=== PATIENT | female | born 1945 | race Caucasian/White ===

== ENCOUNTER 2017-04-03 08:08 | Day surgery (SDC) | payer BC ==
--- NOTE | 2017-04-01 00:49 | HP ---
HISTORY AND PHYSICAL: DATE OF ADMISSION: 04/03/17 - [facility] HISTORY OF PRESENT ILLNESS: The patient is a 71-year-old woman scheduled for cataract extraction of the left eye on 04/03/17. PAST MEDICAL HISTORY: Are as follows: 1. Hypothyroidism. 2. Asthma, controlled. 3. Osteoporosis. 4. History of vitamin D deficiency. 5. History of excision of melanoma in situ. 6. Zoon's vulvitis. 7. History of irritable bowel syndrome. 8. History of nonulcerative dyspepsia. 9. Varicose veins. 10. Hypertension. 11. History of urticaria. 12. 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 PAST SURGICAL HISTORY: Include: 1. Right cataract extraction, 2010. 2. Urethral dilatation in childhood. 3. Cone biopsy of the cervix in 1989. 4. Excision of melanoma in situ, 2005. 5. Excision of melanoma in situ, 2008. CURRENT MEDICATIONS: 1. Losartan 50 mg daily. 2. Tirosint 75 mcg alternating with 50 mcg daily. 3. Vitamin D3 2000 units daily. 4. AlgaeCal 1 every day. 5. Estring. 6. Coenzyme Q10 200 mg daily. 7. Zinc 30 mg daily. 8. Cetirizine 10 mg p.r.n. daily. 9. MultiVites 1 daily. 10. Albuterol inhaler as needed. 11. Vitamin B complex every day. 12. Vitamin C 500 mg two a day. 13. Pregnenolone 4 drops daily. 14. DHEA 2 drops daily. ALLERGIES: ALENDRONATE caused GI upset, FLUCONAZOLE caused swelling under the lips, ASPIRIN caused bruising, and SULFONAMIDE. HABITS: Tobacco none, EtOH none, caffeine none. FAMILY HISTORY: Positive for coronary artery disease. SOCIAL AND PERSONAL HISTORY: The patient is . She lives in [place] [facility] , works at the [employer]. 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 Her mother who is over 100 still lives in [place] and she comes here to visit her. REVIEW OF SYSTEMS: She is generally active. She exercises regularly. She travels a lot. Appetite is good. Weight is stable. Skin: Negative. HEENT: Blurring of vision due to cataract. Nodes: Negative. Heme: Negative. Breasts: Negative. Endocrine: See above. She does have some fatigue, which she attributes to her thyroid. Respiratory: Asthma, controlled. Cardiovascular: Negative. GI: See above. Currently, asymptomatic. : Negative. POWERPLANT OPERATOR: Symptoms of vulvitis controlled with present regimen. Musculoskeletal: Negative. Neuro: Negative. PHYSICAL EXAMINATION GENERAL: She is a well-developed, well-nourished female, in no acute distress. VITAL SIGNS: Blood pressure 130/70 in the right arm, 118/68 in the left arm ( taken at different times); pulse 60, respirations 16; temperature 97.6. SKIN: Warm and dry. HEENT: Atraumatic, normocephalic. Full EOMs. TMs are unremarkable. Hearing normal with hearing aids in. Mouth: Pharynx unremarkable. NECK: Supple. She has mild irregular thyromegaly. Nodes are without adenopathy. CHEST: Clear. HEART: Normal S1 and S2. There are no murmurs, gallops, or rubs. Pulses are full throughout without bruits. ABDOMEN: Soft, nontender. No hepatosplenomegaly. No hernias or masses. Bowel sounds are normal. EXTREMITIES: Showed no clubbing, cyanosis, or edema. She has varicose veins in the lower extremities bilaterally. MUSCULOSKELETAL: Shows no joint deformity or swelling. NEUROLOGIC: She is alert, oriented. Cranial nerves are intact. DTRs are absent in the lower extremities. Gait is normal. PSYCHIATRIC: Cognition and affect appear normal. IMPRESSION: The patient with medical problems as noted above. There were no contraindications to surgery as planned. I will be available in the perioperative period should questions or problems arise. [id number]/[facility] #: [id number] MTDD
[~2017-04-03 08:08] MED LIST: Acetaminophen TAB* 325 MG PO PRN; Buffered Lidocaine 0.9% SYRIN* 5 ML/SYR SYRINGE INTRADERM ONE
[2017-04-03] MEDS ORDERED: Buffered Lidocaine 0.9% SYRIN* 5 ML/SYR SYRINGE ONE ×2 (08:54→14:15)
[2017-04-03] MEDS ORDERED: fentaNYL* 50 MCG/ML 2 ML VIAL (100 MCG VIAL) ONE (10:49)
[2017-04-03] MEDS ORDERED: Midazolam* 1 MG/ML 5 ML VIAL (5 MG) ONE (10:55)
[2017-04-03 12:14] VITALS: BP 131/79
[2017-04-03] MEDS ORDERED: Cyclopentolate 1% OPTH.SOL* 2 ML BTL ONE (14:14)
[2017-04-03] MEDS ORDERED: Phenylephrine 2.5% OPTH.SOL* 2 ML BTL ONE (14:14)
[2017-04-03] MEDS ORDERED: Lidocaine 1% MPF* 2 ML VIAL ONE (14:14)
[2017-04-03] MEDS ORDERED: Tropicamide 1% OPTH.SOL* BTL ONE (14:14)
[2017-04-03] MEDS ORDERED: Tetracaine 0.5% OPTH.SOL 4 ML* 1 DROP BTL ONE (14:14)
[2017-04-03] MEDS ORDERED: Neomycin/Polymy/Dex OPHTH.OIN* 3.5 GM ONE (14:14)
[2017-04-03] MEDS ORDERED: Ketorolac 0.5% OPHTH (NF) 0.5 % 5 ML BTL ONE (14:14)
--- NOTE | 2017-04-04 00:20 | OP ---
DATE OF OPERATION: 04/03/[address] [facility] DATE OF : 43 SURGEON: Dr. Yogesh Baum. FRAMING SPECIALIST: None. ANESTHESIOLOGIST: Berkley Tejada MD ANESTHESIA: Topical with intravenous sedation. PRE-OP DIAGNOSIS: Cataract, left eye. POST-OP DIAGNOSIS: Cataract, left eye. OPERATIVE PROCEDURE: Phacoemulsification and cataract extraction with posterior chamber intraocular lens implant, left eye. COMPLICATIONS: None. BLOOD LOSS: None. DESCRIPTION OF PROCEDURE: The patient was brought to the operating room and received a small amount of intravenous sedation. A drop of tetracaine was placed in her left eye. She was prepped and draped in the usual sterile fashion for ophthalmic surgery and attention was directed to the left eye where a speculum was placed. A paracentesis was created at the 5 o'clock position and 0.1 cc of 1 percent preservative-free lidocaine was injected into the anterior chamber followed by DisCoVisc. The eye was digitally stabilized while a 2.75 mm keratome was used to create a triplanar clear corneal incision at the 3 o'clock position. A continuous curvilinear capsulorrhexis was created with a cystotome and Utrata forceps. BSS on a cannula was used to hydrodissect the lens from the capsule. Phacoemulsification was performed in a divide-and- conquer technique to create four fragments which were removed. Residual cortical material was removed with irrigation and aspiration. DisCoVisc was used to inflate the capsular bag and an SN60WF 20.5 diopter lens was folded and inserted into the capsular bag. DisCoVisc was removed using irrigation and aspiration. BSS on a cannula was used to hydrate the corneal stroma and seal the wound. At the end of the case the pupil was round and the lens was centered. The eye was of normal pressure and the wound was water tight. The speculum was removed and topical Maxitrol ointment was placed on the surface of the eye. The eye was closed, patched and shielded and the patient was sent to the recovery room in stable condition with post operative instructions and follow-up appointment given. [id number]/[facility] #: [id number] MTDD
== END 2017-04-03 11:50 | disposition home or self-care (01) ==
LOC: OREAST 08:08
PROVIDERS: ATTEND Ophthalmology
DX: H25.12 Age-related nuclear cataract, left eye (principal); E03.9 Hypothyroidism, unspecified; J45.909 Unspecified asthma, uncomplicated; E55.9 Vitamin D deficiency, unspecified; Z85.820 Personal history of malignant melanoma of skin; I10 Essential (primary) hypertension; Z88.6 Allergy status to analgesic agent; Z88.2 Allergy status to sulfonamides; Z88.8 Allergy status to other drugs, medicaments and biological substances
CPT/HCPCS: A9270-GY; J2250; J3010; V2632